=== PATIENT | female | born 1995 | race Hispanic/Latino ===

== ENCOUNTER 2018-12-30 11:03 | Emergency (ER) | payer SELFPAY ==
[~2018-12-30] VITALS: Ht 160 cm; Wt 102.1 kg
--- OUTSIDE RECORDS SUMMARY | 2018-12-30 11:06 | XMS REPORT ---
Author Author [facility] Address Unknown Phone Unavailable Care Team Providers Care Wash Barrel Leader Name Role Phone Unavailable Unavailable Payers Payer Name Policy Type Policy Number Effective Date Expiration Date Problems This patient has no known problems. Allergies, Adverse Reactions, Alerts Allergy Name Allergy Type Status Severity Reaction(s) Onset Date Inactive Date Treating Clinician Comments No Known Allergies DA Active U 2018-03-19 00:00:00 Medications This patient has no known medications. Results Test Description Test Time Test Comments Text Results Atomic Results Result Comments BASIC METABOLIC PANEL 2018-12-28 20:59:00 SODIUM (test code=NA) 140 mmol/L 137-145 POTASSIUM (test code=K) 4.1 mmol/L 3.4-5.0 CHLORIDE (test code=CL) 102 mmol/L 98-107 CARBON DIOXIDE (test code=CO2) 27 mmol/L 22-30 GLUCOSE (test code=GLU) 104 mg/dL 74-106 BLOOD UREA NITROGEN (test code=BUN) 11 mg/dL 7-17 GLOMERULAR FILTRATION RATE (test code=GFR) 134 >60 The estimated glomerular filtration rate is computed usingpatient race, age (>18), sex, and serum creatinine. If anyof the needed data elements are missing the Laboratory cannot compute an estimation of the glomerular filtration rate. CREATININE (test code=CREAT) 0.6 mg/dL 0.5-1.0 CALCIUM (test code=CA) 9.1 mg/dL 8.4-10.2 LIVER FUNCTION [id number] 20:59:00* Test Item Value Reference Range Comments TOTAL PROTEIN (test code=PROT) 8.5 g/dL 6.3-8.2 ALBUMIN (test code=ALB) 4.6 g/dL 3.5-5.0 BILIRUBIN TOTAL (test code=BILT) 0.8 mg/dL 0.2-1.3 BILIRUBIN CONJUGATED (test code=BILCON) 0 mg/dL 0-0.3 ~~~~~~~~~~~~~~~~~~~~~~~~~~~~~~~~~~~~~~~~~~~~~~~~~~~~~~~~~~~~CONJUGATED BILIRUBIN IS THE REPLACEMENT ASSAY FOR DIRECTBILIRUBIN.~~~~~~~~~~~~~~~~~~~~~~~~~~~~~~~~~~~~~~~~~~~~~~~~~~~~~~~~~~~~ BILIRUBIN UNCONJUGATED (test code=BILUNC) 0.4 mg/dL 0-1.1 SGOT/AST (test code=AST) 32 U/L 15-46 SGPT/ALT (test code=ALT) 39 U/L 13-69 ALKALINE PHOSPHATASE (test code=ALKP) 54 U/L 38-126 [id number] 20:59:00* Test Item Value Reference Range Comments LIPASE (test code=LIP) U/L 23-300 BASIC METABOLIC [id number] 20:59:00* Test Item Value Reference Range Comments SODIUM (test code=NA) 140 mmol/L 137-145 POTASSIUM (test code=K) 4.1 mmol/L 3.4-5.0 CHLORIDE (test code=CL) 102 mmol/L 98-107 CARBON DIOXIDE (test code=CO2) 27 mmol/L 22-30 GLUCOSE (test code=GLU) 104 mg/dL 74-106 BLOOD UREA NITROGEN (test code=BUN) 11 mg/dL 7-17 GLOMERULAR FILTRATION RATE (test code=GFR) 134 >60 The estimated glomerular filtration rate is computed usingpatient race, age (>18), sex, and serum creatinine. If anyof the needed data elements are missing the Laboratory cannot compute an estimation of the glomerular filtration rate. CREATININE (test code=CREAT) 0.6 mg/dL 0.5-1.0 CALCIUM (test code=CA) 9.1 mg/dL 8.4-10.2 LIVER FUNCTION [id number] 20:59:00* Test Item Value Reference Range Comments TOTAL PROTEIN (test code=PROT) 8.5 g/dL 6.3-8.2 ALBUMIN (test code=ALB) 4.6 g/dL 3.5-5.0 BILIRUBIN TOTAL (test code=BILT) 0.8 mg/dL 0.2-1.3 BILIRUBIN CONJUGATED (test code=BILCON) 0 mg/dL 0-0.3 ~~~~~~~~~~~~~~~~~~~~~~~~~~~~~~~~~~~~~~~~~~~~~~~~~~~~~~~~~~~~CONJUGATED BILIRUBIN IS THE REPLACEMENT ASSAY FOR DIRECTBILIRUBIN.~~~~~~~~~~~~~~~~~~~~~~~~~~~~~~~~~~~~~~~~~~~~~~~~~~~~~~~~~~~~ BILIRUBIN UNCONJUGATED (test code=BILUNC) 0.4 mg/dL 0-1.1 SGOT/AST (test code=AST) 32 U/L 15-46 SGPT/ALT (test code=ALT) 39 U/L 13-69 ALKALINE PHOSPHATASE (test code=ALKP) 54 U/L 38-126 [id number] 20:59:00* Test Item Value Reference Range Comments LIPASE (test code=LIP) 44 U/L 23-300 HCG [id number] 20:57:00* Test Item Value Reference Range Comments HCG POC (test code=HCGPOC) <5.0 IU/L 0-4.9 Results of 5.0-25.0 IU/L are indeterminate and do not ruleout . Because HCG values double approximately every48 hours in a normal , patients with low levels ofHCG should be resampled and retested after 48 hours toconfirm . UA RFLX MICR CULT IF [id number] 20:54:00* Test Item Value Reference Range Comments UA COLOR (test code=COLU) Yellow Yellow UA APPEARANCE (test code=APPU) Clear Clear UA GLUCOSE DIPSTICK (test code=DGLUU) Negative Negative UA BILIRUBIN DIPSTICK (test code=BILU) Negative Negative UA KETONE DIPSTICK (test code=KETU) Trace mg/dL Negative UA SPECIFIC GRAVITY (test code=SGU) 1.028 <1.030 UA BLOOD DIPSTICK (test code=WAYLON) 1+ Negative UA PH DIPSTICK (test code=OBDULIO) 5.0 5.0-8.0 UA PROTEIN DIPSTICK (test code=PROU) NEGATIVE mg/dL Negative UA UROBILINOGEN DIPSTICK (test code=URO) Negative mg/dL Negative UA NITRITE DIPSTICK (test code=FROY) Negative Negative UA LEUKOCYTE ESTERASE DIPSTICK (test code=LEUU) NEGATIVE Negative UA WBC (test code=WBCUR) 0-3 /HPF <4-5 <10 WBC/HPF=PYURIA ABSENT URINE CULTURE NOT INDICATED UA RBC (test code=RBCU) 0-3 /HPF <4-5 UA BACTERIA (test code=BACU) None /HPF None-Rare UA SQUAMOUS CELLS (test code=SQU) 0-5 (RARE) /HPF 0-5 (RARE) UA MUCUS (test code=MUCU) 2+ /LPF <Rare less than 18 yrs old, neutropenic, or urological surgery? NOPrimary Indication f or Culture: OtherOther Indication: ED PATIENTCBC W/AUTO [id number] 20:45:00 * Test Item Value Reference Range Comments WHITE BLOOD CELL (test code=WBC) 12.6 x10 3/uL 5.0-12.0 RED BLOOD CELL (test code=RBC) 4.66 x10 6/uL 4.20-5.40 HEMOGLOBIN (test code=HGB) 12.7 g/dL 12.0-16.0 HEMATOCRIT (test code=HCT) 39.7 % 36.0-46.0 MEAN CELL VOLUME (test code=MCV) 85 fL 81-99 MEAN CELL HGB (test code=MCH) 27.3 pg 27-31 MEAN CELL HGB CONCENTRATION (test code=MCHC) 32.0 g/dL 33-37 RED CELL DISTRIBUTION WIDTH (test code=RDW) 14.2 % 11.5-15.5 PLATELET COUNT (test code=PLT) 314 x10 3/uL 130-400 MEAN PLATELET VOLUME (test code=MPV) 10.2 fL 9.4-16.4 NEUTROPHIL % (test code=NT%) 76.4 % 43-65 IMMATURE GRANULOCYTE % (test code=IG%) 0.2 % 0.0-2.0 LYMPHOCYTE % (test code=LY%) 17.3 % 20.5-45.5 MONOCYTE % (test code=MO%) 5.5 % 5.5-11.7 EOSINOPHIL % (test code=EO%) 0.4 % 0.9-2.9 BASOPHIL % (test code=BA%) 0.2 % 0.2-1.0 NUCLEATED RBC % (test code=NRBC%) 0.0 % 0-1.0 NEUTROPHIL # (test code=NT#) 9.65 x10 3/uL 2.2-4.8 IMMATURE GRANULOCYTE # (test code=IG#) 0.03 x10 3/uL 0-0.03 LYMPHOCYTE # (test code=LY#) 2.18 x10 3/uL 1.3-2.9 MONOCYTE # (test code=MO#) 0.69 x10 3/uL 0.3-0.8 EOSINOPHIL # (test code=EO#) 0.05 x10 3/uL 0.0-0.2 BASOPHIL # (test code=BA#) 0.03 x10 3/uL 0.0-0.1
[2018-12-30] MEDS ORDERED: SODIUM CHLORIDE 0.9% 1000ML 1,000 ML IV STA (11:30)
[2018-12-30] MEDS ORDERED: ONDANSETRON HCL INJ 2MG/ML 2ML 2 MG/ML VIAL IV STA (11:30)
[2018-12-30] MEDS ORDERED: FAMOTIDINE 20 MG/2 ML VIAL IV STA (11:33)
[2018-12-30] MEDS ORDERED: DONNATAL/LIDOCAINE/MAALOX 30 ML SUSP PO STA (11:33)
[2018-12-30 11:42] LABS: BILIRUBIN,URINE MODERATE (NEGATIVE); CLARITY,URINE SL CLOUDY (CLEAR); COLOR,URINE ORANGE (YELLOW); LEUKOCYTE ESTERASE ,URINE TRACE (NEGATIVE); NITRITE,URINE NEGATIVE (NEGATIVE); PROTEIN,URINE DIPSTICK 2+ (NEGATIVE); URINE UROBILINOGEN 0.2 mg/dL (0.2 - 1)
[2018-12-30 11:44] LABS: KETONES,URINE 2+ (NEGATIVE)
[2018-12-30 11:46] LABS: PREGNANCY TEST, URINE NEGATIVE (NEGATIVE)
[2018-12-30 12:00] LABS: EPITHELIAL CELLS,URINE FEW /LPF; RBC,URINE 0-5 /HPF (0-5)
[2018-12-30 12:37] LABS: BASOPHILS % 0.4 % (0.0-1.0); EOSINOPHILS # (AUTO) 0.1 (0.0-0.4); EOSINOPHILS % 0.6 % (0.0-6.0); HEMOGLOBIN 12.1 g/dL (12.0-16.0); LYMPHOCYTES # (AUTO) 1.7 (1.0-3.2); LYMPHOCYTES % 20.2 % (18.0-39.1); MEAN CORPUSCULAR HEMOGLOBIN 27.3 pg (28-32); MEAN CORPUSCULAR HGB CONC 31.8 g/dL (31-35); MEAN CORPUSCULAR VOLUME 85.8 fL (81-99); MONOCYTES # (AUTO) 0.6 (0.2-0.8); MONOCYTES % 6.9 % (4.4-11.3); NEUTROPHILS # (AUTO) 5.9 (2.1-6.9); NEUTROPHILS % 71.7 % (38.7-80.0); PLATELET COUNT 267 x10e3/uL (140-360); RED BLOOD COUNT 4.43 x10e6/uL (3.6-5.1); RED CELL DISTRIBUTION WIDTH 14.3 % (11.7-14.4)
[2018-12-30 13:20] LABS: ALANINE AMINOTRANSFERASE 28 IU/L (0-55); ALBUMIN 3.8 g/dL (3.5-5.0); ALBUMIN/GLOBULIN RATIO 0.9 (0.8-2.0); ALKALINE PHOSPHATASE 57 IU/L (40-150); AMYLASE 42 U/L (25-125); ANION GAP 14.3 mmol/L (8-16); BLOOD UREA NITROGEN 9 mg/dL (7-26); BUN/CREATININE RATIO 12 (6-25); CALCIUM 9.4 mg/dL (8.4-10.2); CARBON DIOXIDE 22 mmol/L (22-29); CHLORIDE 105 mmol/L (98-107); CREATININE, SERUM 0.76 mg/dL (0.57-1.11); EST GLOMERULAR FILTRATION RATE > 60 ML/MIN (60-); GLUCOSE 88 mg/dL (74-118); LIPASE 12 U/L (8-78); POTASSIUM 3.3 mmol/L (3.5-5.1); SODIUM 138 mmol/L (136-145)
[2018-12-30 13:57] VITALS: BP 109/46
== END 2018-12-30 14:06 | disposition home or self-care (01) ==
LOC: ER 11:03
DX: R10.11 Right upper quadrant pain (principal); R10.13 Epigastric pain; R11.2 Nausea with vomiting, unspecified; R19.7 Diarrhea, unspecified; M54.5 Low back pain; S39.012A Strain of muscle, fascia and tendon of lower back, initial encounter
CPT/HCPCS: 36415; 80053; 81001; 81025; 82150; 83690; 85025; 99283; J2405; J7030